=== PATIENT | female | born 1975 | race Caucasian/White ===

== ENCOUNTER 2017-08-06 18:00 | Emergency (ER) | payer MEDICAID, OTHER ==
[~2017-08-06] VITALS: Ht 165.1 cm; Wt 63.5 kg
[~2017-08-06 18:00] MED LIST: FOLIC ACID1 MG ORAL; PLAQUENIL200 MG ORAL
--- NOTE | 2017-08-06 18:25 | Emergency Room Report ---
History of Present Illness General Chief Complaint: Lower Extremity Injury Source: Patient Present Illness HPI Patient presents with complaints of discomfort to her right knee She reports that she was will skating prior to arrival she had a fall essentially tried to avoid someone in front of her falling backwards Patient thinks she might have been a hyperextension type injury Denies any pelvic pain denies any ankle pain patient has had fairly extensive past medical history in the right knee including ACLS care And a reinjury denies any neuropathy denies any discomfort in the ankle Allergies: Coded Allergies: PENICILLINS (Verified Allergy, Unknown, 08/06/17) Patient History Past Medical History: see triage record Pertinent Family History: none Last Menstrual Period: 07/21/17 Now: No Reviewed Nursing Documentation: PMH: Agreed, PSxH: Agreed Nursing Documentation-PMH Hx Neurological Problems: Yes - Lupus Review of Systems All Other Systems: negative except mentioned in HPI Physical Exam Vital Signs Date Time Temp Pulse Resp B/P (MAP) Pulse Ox O2 Delivery O2 Flow Rate FiO2 08/06/17 18:06 98.4 82 15 108/73 98 Room Air Sp02 EP Interpretation: reviewed, normal General Appearance: well appearing, no apparent distress Head: normocephalic, atraumatic Eyes: bilateral eye PERRL, bilateral eye EOMI ENT: normal pharynx, no angioedema Neck: supple Respiratory: lungs clear Musculoskeletal: other - No obvious joint effusion patient is uncomfortable with any palpation or evaluation of the patella with any somewhat of a limited exam no obvious hematoma or ecchymosis, , Neurologic: alert, oriented x3 Skin: normal color Lymphatic: no adenopathy Procedures Splinting Splinting : Consent: Verbal Location: right knee Pre-Made Type: knee immobilizer Pre-Proc Neuro Vasc Exam: normal Post-Proc Neuro Vasc Exam: normal Patient Tolerated: Well Complications: None Medical Decision Making Diagnostic Impression: Primary Impression: Right knee sprain ER Course Given the patient's presentation initial imaging studies were obtained no obvious signs of acute bony structure abnormality given the patient's clinical history Sounds to be likely ligamental in nature Patient was placed into a knee immobilizer At this time has close outpatient followup for further imaging such as MRI and outpatient workup Other X-Ray Diagnostic Results Other X-Ray Diagnostic Results : X-Ray ordered: right knee # of Views/Limited Vs Complete: 3 View Indication: Pain EP Interpretation: Yes Interpretation: no dislocation, no soft tissue swelling, no fractures, other - evidence of previous intervention Impression: No acute disease Electronically Signed by: Toi Martinez, Last Vital Signs Date Time Temp Pulse Resp B/P (MAP) Pulse Ox O2 Delivery O2 Flow Rate FiO2 08/06/17 18:06 98.4 82 15 108/73 98 Room Air Status: improved Disposition: HOME, SELF-CARE Condition: Improved Scripts Acetaminophen With Codeine (T#3) (TYLENOL #3 TAB*) Y Tab 1 TAB ORAL Q8H Y for For Pain, #10 TAB Prov: TOI MARTINEZ D.O. 08/06/17 Ibuprofen* (MOTRIN*) 600 Mg Tablet 600 MG ORAL Q8H Y for For Pain, #20 TAB 0 Refills Prov: TOI MARTINEZ D.O. 08/06/17 Referrals: [facility],REFERRING (PCP) Additional Instructions: Patient is provided with the discharge instructions notified to follow up with primary doctor in the next 2-3 days otherwise return to the er with any worsening symptoms. Please note that this report is being documented using [employer] technology. This can lead to erroneous entry secondary to incorrect interpretation by the dictating instrument. TOI MARTINEZ D.O. Aug 06, 2017 18:25
[2017-08-06] MEDS ORDERED: IBUPROFEN600 MG ORAL (18:57)
[2017-08-06] MEDS ORDERED: Tylenol #3 tab (300mg/30mg) ORAL ONE (19:00)
[2017-08-06] MEDS ORDERED: ACETAMINOPHEN-1 EAC1 ORAL (19:07)
[2017-08-06 19:18] VITALS: BP 99/51
--- NOTE | 2017-08-07 09:56 | Diagnostic Imaging Report ---
Indication: PAIN Technique: XRAY KNEE THREE VIEWS RIGHT Comparison: None. Findings: There are metallic screw anchors present from recent anterior cruciate ligament repair. The joint space is normal.. The bones are intact. No fracture. No bone destruction. Alignment is normal. Impression: Evidence of previous anterior cruciate ligament repair. Otherwise negative.
== END 2017-08-06 19:24 | disposition home or self-care (01) ==
LOC: EMR 18:10
DX: S83.91XA Sprain of unspecified site of right knee, initial encounter (principal); W19.XXXA Unspecified fall, initial encounter; Y93.51 Activity, roller skating (inline) and skateboarding; Y92.89 Other specified places as the place of occurrence of the external cause; Z88.0 Allergy status to penicillin; M32.9 Systemic lupus erythematosus, unspecified
CPT/HCPCS: 29505; 99284